=== PATIENT | male | born 1960 | race Caucasian/White ===

== ENCOUNTER 2020-05-11 15:11 | IRF | payer OTHER, SELFPAY ==
--- NOTE | 2020-05-11 14:37 | ADMGEN ---
This patient, Robert Huston, was admitted to PSYCHIATRIC Room 223-02. Patient/family oriented to hospital policies and general routines including ID bracelet, bed and alarms, visiting hours, pain management, procedures, bathroom and other care routines, personal items, smoking policy, room service/diet, and visiting hours. Information on how to activate the Rapid Response Team has been discussed. Patient/Family are encouraged to report perceived risks to care and to ask questions if they do not understand what they are told or what they should do.
[2020-05-11 14:45] VITALS: BP 110/63; PULSE 80; RESP 20; TEMP 36.7; O2SAT 96; BMI 25.4
[2020-05-11 14:47] VITALS: BP 110/63; PULSE 80; RESP 20; TEMP 36.7; O2SAT 96; BMI 25.4
[2020-05-11 15:37] VITALS: BMI 25.4
[2020-05-11] MEDS: APIXABAN 5 MG TABLET PO (18:08)
[2020-05-11] MEDS: ATORVASTATIN 40 MG TABLET PO (20:09)
[2020-05-11] MEDS: DIVALPROEX SODIUM ER 500 MG TAB 2000 MG PO (20:10)
[2020-05-11 22:00] VITALS: BP 115/70; PULSE 65; RESP 17; TEMP 36.1; O2SAT 96
[2020-05-12 05:15] LABS: Basophils Percent Auto 0.4 % (0.2-1.2); Eosinophils Absolute Auto 0.2 K/mm3 (0-0.3); Eosinophils Percent Auto 2.6 % (0-4.4); Hemoglobin 14.7 g/dL (14.0-18.0); Immature Granulocyte Absolute 0.03 K/mm3 (0.00-0.031); Immature Granulocyte Percent A 0.4 % (0-0.5); Lymphocytes Percent Auto 49.7 % (18.3-44.2); Mean Corpuscular HGB Conc 34.2 g/dl (32-36); Mean Corpuscular Volume 93.5 fl (80-100); Mean Platelet Volume 10.3 fl (7.4-10.4); Monocytes Absolute Auto 0.8 K/mm3 (0.1-0.6); Monocytes Percent Auto 10.1 % (2.6-8.5); Neutrophils Absolute Auto 2.7 K/mm3 (1.3-6.7); Neutrophils Percent Auto 36.8 % (45.5-73.1); Platelet Count Result 245 k/mm3 (150-375); White Blood Count 7.4 K/mm3 (4.5-10.0)
[2020-05-12 05:30] LABS: Anion Gap 7 mmol/L (8-16); Blood Urea Nitrogen 23 mg/dL (9-20); Calcium 9.3 mg/dL (8.4-10.2); Carbon Dioxide 32 mmol/L (22-30); Chloride 101 mmol/L (98-107); Cholesterol 118 mg/dL (0-200); Estimated CRCL calculation 97 ml/min; Estimated Glomerular Filt Rate > 60; Glucose 92 mg/dL (75-110); HDL Direct 22 mg/dL; Potassium 4.6 mmol/L (3.4-5.0); Sodium 140 mmol/L (137-145); Triglycerides 147 mg/dL (<150)
[2020-05-12 05:41] LABS: LDL Cholesterol Direct 72 mg/dL
[2020-05-12 06:00] VITALS: BP 150/95; PULSE 70; RESP 17; TEMP 36.1; O2SAT 97
[2020-05-12 08:42] VITALS: PULSE 70
[2020-05-12] MEDS: APIXABAN 5 MG TABLET PO ×2 (08:42→17:40)
[2020-05-12] MEDS: METOPROLOL SUCCINATE EXT REL 50 MG TABCR PO (08:42)
[2020-05-12] MEDS: lisinopriL 10 MG TABLET PO (08:42)
[2020-05-12] MEDS: SERTRALINE HCL 50 MG TABLET 150 MG PO (08:43)
[2020-05-12] MEDS: SPIRONOLACTONE 12.5 MG TABLET PO (08:43)
--- NOTE | 2020-05-12 11:25 | WPDREHABHP ---
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 history and present illness. 59 years old right-handed male presented to [facility] as a transfer from [facility] in [place] on May 04, 2020 the patient reported attempting to stand up walking up on 05/04 was unable to do so. Upon presentation to [facility] his NIH was 3 and the patient was given tPA and admitted to the neuro ICU. CT of the head was negative for any acute hemorrhage, but showed ventricular enlargement out of proportion to sulcal enlargement representing the possibility of hydrocephalus. 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 CT angiography showed a heterogeneous enlarged left thyroid lobe and no acute hemorrhage or large arterial occlusion, TTE showed an ejection fraction of 20% and apixaban was started in the setting of low ejection fraction. It was suspected the ischemic mechanism was cardioembolic. The patient underwent LHC on 05/07 for newly diagnosed NYHA class 3 systolic heart failure and started on goal-directed medical therapy. 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 Plan was to continue Eliquis 5 mg b.i.d. for anticoagulation until seen for follow-up with outpatient neurologist. 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 He was previously on praluent but stopped 4 months ago due to worsening confusion] the patient is awake alert oriented x4 and he has passed his swallowing evaluation and is also on regular diet. The patient has not traveled outside the [place] or had contact with someone who is ill that has travelled outside the [place] in the past 21 days. The patient has not traveled to an area of the [place] that is experiencing known transmission of the Coronavirus and has not had close personal contact with anyone that has. The patient does not have a fever. The patient is not experiencing lower respiratory illness symptoms. Therapy was initiated at the acute care facility and the patient was transferred to us from [facility] to [facility] on May 11, 2020ADMISSION FUNCTION: Eating supervision or touching physical laboratory assistant Oral Care partial and moderate assistance Toileting Hygiene substantial and maximal assistance Shower/Bathing substantial and maximal assistance Upper Body Dressing substantial and maximal assistance Lower Body Dressing substantial and maximal assistance Donning/Talent Footwear substantial and maximal assistance Rolling Left and Right partial and moderate assistance Sit to Lying partial and moderate assistance Lying to Sitting partial and moderate assistance Sit to Stand dependent Bed to Chair Transfers dependent Toilet Transfers dependent Car Transfers depending Walking the patient has walked 3ft with a hand-held assist and dependent with Min assist of 2 wheelchair mobility not tested his stairs not tested GOALS: Eating [INDEPENDENT] Oral Care [INDEPENDENT] Toileting Hygiene [INDEPENDENT] Shower/Bathing [INDEPENDENT] Upper Body Dressing [INDEPENDENT] Lower Body Dressing [INDEPENDENT] Donning/Talent Footwear [INDEPENDENT] Rolling Left and Right [INDEPENDENT] Sit to Lying [INDEPENDENT] Lying to Sitting [INDEPENDENT] Sit to Stand [INDEPENDENT] Bed to
[2020-05-12 12:51] VITALS: BMI 25.4
[2020-05-12 14:00] VITALS: BP 101/59; PULSE 76; RESP 18; TEMP 36.6; O2SAT 98
--- NOTE | 2020-05-12 16:48 | RPD ---
INDIVIDUALIZED PLAN OF CARE FOR Robert Huston Brief Synthesis of Pre-Admission Screen, Post-Admission Evaluation and Therapy Evaluations: The patient presents to rehab with an acute distal left MARIAN territory infarction. Comorbidities include ischemic cardiomyopathy, HLD, HTN, depression, bipolar, inferior wall AR, right-sided weakness, active smoker, CAD, and systolic heart failure with EF 20%. The complexity of the patient's medical management, nursing, and therapy needs require an inpatient rehab hospital stay with a physician-led interdisciplinary team approach. The patient?s needs will be best met in an intensive program vs. at a lower level of care. The patient requires physician services for neurology services, medical oversight, and coordination of care. The patient requires nursing services for frequent neuro checks, anticoagulation therapy, medication management and education, pressure relief and skin care management, monitoring of labs, bowel and bladder training, and fall/safety precautions. Deficits include:ADLs, Balance, Endurance, Family Training/Education, Mobility, Pain Management, ROM, Safety, Strength, and Transfers. Automatic Wheel Line Operator/Case Management for: Discharge Planning and Patient/Family Counseling Physical Therapy: 5 days per week for 90 minutes. Treatments may include: Therapeutic Exercise, Gait Training, Neuromuscular Re-education, Transfer Training, Community Reintegration, Bed Mobility, Patient/Family Education, Wheelchair Mobility Group Therapy/Concurrent Therapy Rationales: -Improve attention span during functional activities in a distracted environment. -Enhance problem solving and/or adequate judgment skills during functional activities in a distracted environment. -Promote increased safety awareness in a distracted environment to reduce fall risk with functional tasks, transfers, and ambulation to allow a more safe, self-sufficient return to the home environment. -Improve dynamic balance skills to promote safety and independence with functional activities in a distracted environment for maximum gain. Occupational Therapy: 5 days per week for 90 minutes. Treatments may include: Therapeutic Exercise, Therapeutic Activity, Cognitive Training, Self-Care Transfer Training, Community Reintegration, Home Management, Patient/Family Education, Wheelchair Mobility Training, Energy Conservation Training Group Therapy/Concurrent Therapy Rationales: -Allow therapist to observe and teach generalization and carry-over of skills learned in individual therapy. -Enhance problem solving and sequencing skills during therapeutic activities in a distracted environment. -Promote increased safety awareness in a realistic setting to reduce fall risk with functional tasks due to visual and verbal distractions. -Increase functional level with ADLs, ADL transfers and use of adaptive equipment through therapeutic activities with others while promoting safety to allow a more safe, self-sufficient return home. Medical Prognosis: Good Anticipated Length of Stay: 12 days Rehab Goals: Eating Goal: 06-Independent Oral Hygiene Goal: 06-Independent Toileting Hygiene Goal: 06-Independent Shower/Bathe Self Goal: 04-Supervision or Touching Assistance Upper Body Dressing Goal: 05-Setup or Clean Up Assistance Lower Body Dressing Goal: 05-Setup or Clean Up Assistance Putting On/Taking Off Footwear Goal: 05-Setup or Clean Up Assistance Rolling Left and Right Goal: 06-Independent Sit to Lying Goal: 06-Independent Lying to Sitting on Side of Bed Goal: 06-Independent Sit to Stand Goal: 06-Independent Chair/Tzb-ax-Ezcas Transfer Goal: 06-Independent Toilet Transfer Goal: 06-Independent Car Transfer Goal: 06-Independent Walk 10' Goal: 06-Independent Walk 50' with Two Turns Goal: 06-Independent Walk 150' Goal: 06-Independent Walk 10' on Uneven Surface Goal: 06-Independent 1 Step (Curb) Goal: 06-Independent 4 Steps Goal: 06-Independent 12 Steps Goal Score: 09-Not
--- NOTE | 2020-05-12 18:30 | PHAR ---
PT'S HOME MED PALIPERIDONE ER 6 MG TABS VERIFIED BY PHARMACY
[2020-05-12] MEDS: DIVALPROEX SODIUM ER 500 MG TAB 2000 MG PO (19:53)
[2020-05-12] MEDS: ATORVASTATIN 40 MG TABLET PO (19:53)
[2020-05-12 20:49] VITALS: BP 105/53; PULSE 57; RESP 18; TEMP 36.7; O2SAT 98
[2020-05-13 05:03] VITALS: BP 120/82; PULSE 57; RESP 18; TEMP 36.2; O2SAT 97
[2020-05-13 09:55] VITALS: PULSE 60
[2020-05-13] MEDS: SPIRONOLACTONE 12.5 MG TABLET PO (09:55)
[2020-05-13] MEDS: APIXABAN 5 MG TABLET PO ×2 (09:55→17:14)
[2020-05-13] MEDS: lisinopriL 10 MG TABLET PO (09:55)
[2020-05-13] MEDS: METOPROLOL SUCCINATE EXT REL 50 MG TABCR PO (09:55)
[2020-05-13] MEDS: SERTRALINE HCL 50 MG TABLET 150 MG PO (09:55)
[2020-05-13 14:00] VITALS: BP 118/64; PULSE 70; RESP 20; TEMP 36.2; O2SAT 97
--- NOTE | 2020-05-13 17:31 | WPDNEURORHBP ---
Subjective Date/time seen: 05/13/20 17:31 59 years old admitted to the rehab floor with diagnosis of stroke secondary to acute distal left anterior cerebral artery infarction and history of smoking 2 packs per day with 90 pack years Review of Systems Review of Systems: All systems reviewed & are unremarkable except as noted in HPI and below Functional Status Ambulation Ability Ambulation Assistive Devices: Parallel Bars Exam Narrative: Exam Narrative: examination revealed him to be awake alert cooperative in no obvious acute distress, head normocephalic,ears nose throat examination normal neck supple with no restriction of the range of motion no cervical bruits, heart regular with no murmur, lungs clear with no rhonchi or crepitation ,abdomen is soft with no organomegaly, normal bowel sounds and neurological examination revealed him to have somewhat slow speech , left-sided hemiparesis, hyperreflexia and upgoing plantar response Objective Data Vital Signs Vital Signs: Vital Signs - 24 hr 05/12/20 20:49 05/13/20 05:03 05/13/20 09:55 Temperature 36.7 C 36.2 C L Pulse Rate 57 L 57 L 60 Respiratory Rate 18 18 Blood Pressure 105/53 L 120/82 Pulse Oximetry 98 97 05/13/20 14:00 Temperature 36.2 C L Pulse Rate 70 Respiratory Rate 20 Blood Pressure 118/64 Pulse Oximetry 97 Intake/Output Intake/Output: Intake & Output 05/10/20 05/11/20 05/12/20 05/13/20 23:59 23:59 23:59 23:59 Intake Total 240 1200 480 Balance 240 1200 480 Meds/Results Medications: Active Medications Generic Name Dose Route Start Last Admin Trade Name Fuadq PRN Reason Stop Dose Admin Apixaban 5 mg 05/11/20 17:00 05/13/20 17:14 Apixaban 5 Mg Tablet PO 5 mg BID FELIZ Administration Atorvastatin Calcium 40 mg 05/11/20 21:00 05/12/20 19:53 Atorvastatin 40 Mg Tablet PO 40 mg HS FELIZ Administration Divalproex Sodium 2,000 mg 05/11/20 21:00 05/12/20 19:53 Divalproex Sodium Er 500 Mg Tab PO 2,000 mg HS FELIZ Administration Lisinopril 10 mg 05/12/20 09:00 05/13/20 09:55 Lisinopril 10 Mg Tablet PO 10 mg DAILY FELIZ Administration Metoprolol Succinate 50 mg 10/26/20 09:00 05/13/20 09:55 Metoprolol Succinate Ext Rel 50 Mg Tabcr PO 50 mg DAILY FELIZ Administration Sertraline HCl 150 mg 05/12/20 09:00 05/13/20 09:55 Sertraline Hcl 50 Mg Tablet PO 150 mg DAILY FELIZ Administration Spironolactone 12.5 mg 05/12/20 09:00 05/13/20 09:55 Spironolactone 12.5 Mg Tablet PO 12.5 mg QAM FELIZ Administration Progress Note: A&P Additional Plan continue with the physical therapy and occupational therapy in all the medication as such
[2020-05-13] MEDS: ATORVASTATIN 40 MG TABLET PO (20:06)
[2020-05-13] MEDS: DIVALPROEX SODIUM ER 500 MG TAB 2000 MG PO (20:06)
[2020-05-13 20:28] VITALS: BP 114/61; PULSE 71; RESP 18; TEMP 36.1; O2SAT 98
[2020-05-14 05:15] VITALS: BP 126/72; PULSE 67; RESP 18; TEMP 36.4; O2SAT 99
[2020-05-14 08:38] VITALS: PULSE 67
[2020-05-14] MEDS: lisinopriL 10 MG TABLET PO (08:38)
[2020-05-14] MEDS: APIXABAN 5 MG TABLET PO ×2 (08:38→17:44)
[2020-05-14] MEDS: METOPROLOL SUCCINATE EXT REL 50 MG TABCR PO (08:38)
[2020-05-14] MEDS: SPIRONOLACTONE 12.5 MG TABLET PO (08:39)
[2020-05-14] MEDS: SERTRALINE HCL 50 MG TABLET 150 MG PO (08:39)
[2020-05-14 14:00] VITALS: BP 111/61; PULSE 64; RESP 18; TEMP 36.6; O2SAT 97
--- NOTE | 2020-05-14 17:43 | WPDNEURORHBP ---
Subjective Date/time seen: 05/14/20 17:43 59 years old with diagnosis of stroke continues to be involved in physical therapy and occupational therapy has no specific problems Review of Systems Review of Systems: All systems reviewed & are unremarkable except as noted in HPI and below Functional Status Ambulation Ability Ability to Ambulate 10 Feet: Moderate Assistance X 1 Ambulation Assistive Devices: Parallel Bars Transfers Ability Ability to Transfer In/Out of Chair: Minimum Assistance X 1 Exam Narrative: Exam Narrative: on examination awake alert no distress,ear nose throat exam normal ,neck supple, heart regular, lungs clear, abdomen is soft nontender, normal bowel sounds, neuro unchanged Objective Data Vital Signs Vital Signs: Vital Signs - 24 hr 05/13/20 20:28 05/14/20 05:15 05/14/20 08:38 Temperature 36.1 C L 36.4 C Pulse Rate 71 67 67 Respiratory Rate 18 18 Blood Pressure 114/61 126/72 Pulse Oximetry 98 99 05/14/20 14:00 Temperature 36.6 C Pulse Rate 64 Respiratory Rate 18 Blood Pressure 111/61 Pulse Oximetry 97 Intake/Output Intake/Output: Intake & Output 05/11/20 05/12/20 05/13/20 05/14/20 23:59 23:59 23:59 23:59 Intake Total 240 1200 720 480 Balance 240 1200 720 480 Meds/Results Medications: Active Medications Generic Name Dose Route Start Last Admin Trade Name Freq PRN Reason Stop Dose Admin Apixaban 5 mg 05/11/20 17:00 05/14/20 08:38 Apixaban 5 Mg Tablet PO 5 mg BID FELIZ Administration Atorvastatin Calcium 40 mg 05/11/20 21:00 05/13/20 20:06 Atorvastatin 40 Mg Tablet PO 40 mg HS FELIZ Administration Divalproex Sodium 2,000 mg 05/11/20 21:00 05/13/20 20:06 Divalproex Sodium Er 500 Mg Tab PO 2,000 mg HS FELIZ Administration Lisinopril 10 mg 05/12/20 09:00 05/14/20 08:38 Lisinopril 10 Mg Tablet PO 10 mg DAILY FELIZ Administration Metoprolol Succinate 50 mg 05/12/20 09:00 05/14/20 08:38 Metoprolol Succinate Ext Rel 50 Mg Tabcr PO 50 mg DAILY FELIZ Administration Sertraline HCl 150 mg 05/12/20 09:00 05/14/20 08:39 Sertraline Hcl 50 Mg Tablet PO 150 mg DAILY FELIZ Administration Spironolactone 12.5 mg 05/12/20 09:00 05/14/20 08:39 Spironolactone 12.5 Mg Tablet PO 12.5 mg QAM FELIZ Administration Progress Note: A&P Additional Plan continue with therapy
--- NOTE | 2020-05-14 18:07 | PHAR ---
Home med paliperidone er 6mg tabalets seen in pharmacy and returned to [facility] unit
[2020-05-14] MEDS: ATORVASTATIN 40 MG TABLET PO (19:56)
[2020-05-14] MEDS: DIVALPROEX SODIUM ER 500 MG TAB 2000 MG PO (19:56)
[2020-05-14 22:00] VITALS: BP 116/57; PULSE 62; RESP 20; TEMP 36.8; O2SAT 98
[2020-05-15 06:00] VITALS: BP 142/60; PULSE 53; RESP 17; TEMP 36.4; O2SAT 98
[2020-05-15] MEDS: lisinopriL 10 MG TABLET PO (09:43)
[2020-05-15] MEDS: SERTRALINE HCL 50 MG TABLET 150 MG PO (09:43)
[2020-05-15 09:44] VITALS: PULSE 53
[2020-05-15] MEDS: APIXABAN 5 MG TABLET PO ×2 (09:44→17:49)
[2020-05-15] MEDS: SPIRONOLACTONE 12.5 MG TABLET PO (09:44)
[2020-05-15] MEDS: METOPROLOL SUCCINATE EXT REL 50 MG TABCR PO (09:44)
[2020-05-15 14:00] VITALS: BP 104/56; PULSE 64; RESP 16; TEMP 37.1; O2SAT 98
--- NOTE | 2020-05-15 16:17 | PCPTNOTE ---
Robert Huston was evaluated for a wheeled walker on 05/15/2020 by this physical therapist assistant child care teacher. The wheeled walker will resolve patient's mobility limitations and will be used for ADL's within the home. The patient can safely use the wheeled walker. ?The wheeled walker will resolve the patient?s mobility deficits, including decreased endurance, strength, balance, safety awareness. Eulalia Larkin, DANE 05/15/20 16:18
[2020-05-15] MEDS: ATORVASTATIN 40 MG TABLET PO (20:06)
[2020-05-15] MEDS: DIVALPROEX SODIUM ER 500 MG TAB 2000 MG PO (20:06)
[2020-05-15 21:02] VITALS: BP 98/55; PULSE 60; RESP 18; TEMP 36.6; O2SAT 97
[2020-05-16 05:12] VITALS: BP 126/65; PULSE 71; RESP 18; TEMP 36.5; O2SAT 97
[2020-05-16] MEDS: APIXABAN 5 MG TABLET PO ×2 (08:37→16:45)
[2020-05-16 08:38] VITALS: PULSE 71
[2020-05-16] MEDS: SPIRONOLACTONE 12.5 MG TABLET PO (08:38)
[2020-05-16] MEDS: SERTRALINE HCL 50 MG TABLET 150 MG PO (08:38)
[2020-05-16] MEDS: METOPROLOL SUCCINATE EXT REL 50 MG TABCR PO (08:38)
[2020-05-16] MEDS: lisinopriL 10 MG TABLET PO (08:38)
--- NOTE | 2020-05-16 12:31 | PCDIET ---
Nutrition Follow-Up Complete: Nutrition Diagnosis: Decreased fat/sodium needs related to cardiovascular disease as evidenced by history of CAD/CABG and CVA. Nutrition Goal: Patient will continue to consume 75% of meals or greater. Goal met. Patient consuming 100% of most meals on regular diet. Discussed recommendation for heart healthy diet with patient and provided information. See Teach: MNT Stroke Prevention for additional details. Last recorded weight is 78.1 kg. Recommend obtaining new weight. Bowel Motility: Last documented BM on 05/15/20. Labs Reviewed: No new labs available. Meds Noted: Lipitor, Lisinopril, Aldactone Additional Notes: No documented skin breakdown. Will continue to monitor with same goal. Nutrition Monitoring and Evaluation: Follow up every 7 days.
--- NOTE | 2020-05-16 13:14 | WPDNEURORHBP ---
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 has been placed on Eliquis 5 mg twice a day for anticoagulation along with aspirin and atorvastatin he does have a history of myopathy so his atorvastatin could not be increased to80mg daily his involving the physical therapy has been able to ambulate with moderate assistance of 1 using the palatal bars and also able to transfer in out of chair with minimum assistance of 1 Review of Systems Review of Systems: All systems reviewed & are unremarkable except as noted in HPI and below Functional Status Ambulation Ability Ability to Ambulate 10 Feet: Moderate Assistance X 1 Ambulation Assistive Devices: Walker, Wheeled Transfers Ability Ability to Transfer In/Out of Chair: Minimum Assistance X 1 Exam Narrative: Exam Narrative: on examination he is awake alert in no acute distress neck is supple ear nose throat examination normal mucous membranes are moist no rhinorrhea no discharge regular with no murmur lungs clear to auscultation abdomen is soft and neuro examination unchanged Objective Data Vital Signs Vital Signs: Vital Signs - 24 hr 05/15/20 14:00 05/15/20 21:02 05/16/20 05:12 Temperature 37.1 C 36.6 C 36.5 C Pulse Rate 64 60 71 Respiratory Rate 16 18 18 Blood Pressure 104/56 L 98/55 L 126/65 Pulse Oximetry 98 97 97 05/16/20 08:38 Temperature Pulse Rate 71 Respiratory Rate Blood Pressure Pulse Oximetry Intake/Output Intake/Output: Intake & Output 05/13/20 05/14/20 05/15/20 05/16/20 23:59 23:59 23:59 23:59 Intake Total 720 720 720 240 Balance 720 720 720 240 Meds/Results Medications: Active Medications Generic Name Dose Route Start Last Admin Trade Name Freq PRN Reason Stop Dose Admin Apixaban 5 mg 05/11/20 17:00 05/16/20 08:37 Apixaban 5 Mg Tablet PO 5 mg BID FELIZ Administration Atorvastatin Calcium 40 mg 05/11/20 21:00 05/15/20 20:06 Atorvastatin 40 Mg Tablet PO 40 mg HS FELIZ Administration Divalproex Sodium 2,000 mg 05/11/20 21:00 05/15/20 20:06 Divalproex Sodium Er 500 Mg Tab PO 2,000 mg HS FELIZ Administration Lisinopril 10 mg 05/12/20 09:00 05/16/20 08:38 Lisinopril 10 Mg Tablet PO 10 mg DAILY FELIZ Administration Metoprolol Succinate 50 mg 05/12/20 09:00 05/16/20 08:38 Metoprolol Succinate Ext Rel 50 Mg Tabcr PO 50 mg DAILY FELIZ Administration Sertraline HCl 150 mg 05/12/20 09:00 05/16/20 08:38 Sertraline Hcl 50 Mg Tablet PO 150 mg DAILY FELIZ Administration Spironolactone 12.5 mg 05/12/20 09:00 05/16/20 08:38 Spironolactone 12.5 Mg Tablet PO 12.5 mg QAM FELIZ Administration Progress Note: A&P Assessment and Plan (1) Stroke: Code(s): I63.9 - Cerebral infarction, unspecified Status: Acute (2) Cerebral ventriculomegaly: Code(s): G93.89 - Other specified disorders of brain Status: Acute Additional Plan continue with the therapy as such further adjustment accordingly
[2020-05-16 14:00] VITALS: BP 114/54; PULSE 68; RESP 20; TEMP 36.8; O2SAT 98
[2020-05-16] MEDS: ATORVASTATIN 40 MG TABLET PO (20:32)
[2020-05-16] MEDS: DIVALPROEX SODIUM ER 500 MG TAB 2000 MG PO (20:33)
[2020-05-16 22:00] VITALS: BP 96/48; PULSE 67; RESP 16; TEMP 36.6; O2SAT 97
[2020-05-17 06:00] VITALS: BP 135/85; PULSE 60; RESP 16; TEMP 36.3; O2SAT 96
[2020-05-17 07:50] VITALS: PULSE 60
[2020-05-17] MEDS: SERTRALINE HCL 50 MG TABLET 150 MG PO (07:50)
[2020-05-17] MEDS: APIXABAN 5 MG TABLET PO ×2 (07:50→17:02)
[2020-05-17] MEDS: lisinopriL 10 MG TABLET PO (07:50)
[2020-05-17] MEDS: METOPROLOL SUCCINATE EXT REL 50 MG TABCR PO (07:50)
[2020-05-17] MEDS: SPIRONOLACTONE 12.5 MG TABLET PO (07:51)
[2020-05-17 14:00] VITALS: BP 95/54; PULSE 54; RESP 16; TEMP 37; O2SAT 98
[2020-05-17] MEDS: ATORVASTATIN 40 MG TABLET PO (19:55)
[2020-05-17] MEDS: DIVALPROEX SODIUM ER 500 MG TAB 2000 MG PO (19:56)
[2020-05-17 22:00] VITALS: BP 108/69; PULSE 60; RESP 15; TEMP 36.5; O2SAT 98
--- NOTE | 2020-05-18 01:06 | PC.NURSE ---
Daylight Savings Time For Daylight Savings Time Ending in the Fall - Clocks are moved back. For Daylight Savings Time Beginning in the Spring - Clocks are moved ahead. For [facility], the time of change occurs at 0200 hrs. Time is taken from the senior sql server database developer. This entry on the patient's chart recognizes the change in time reflected during documentation. Example: 2 entries for vital signs may be charted for 0200 hrs.
[2020-05-18 06:00] VITALS: BP 130/76; PULSE 59; RESP 16; TEMP 36.2; O2SAT 100
[2020-05-18] MEDS: APIXABAN 5 MG TABLET PO ×2 (07:53→16:31)
[2020-05-18] MEDS: lisinopriL 10 MG TABLET PO (07:53)
[2020-05-18 07:54] VITALS: PULSE 59
[2020-05-18] MEDS: SPIRONOLACTONE 12.5 MG TABLET PO (07:54)
[2020-05-18] MEDS: SERTRALINE HCL 50 MG TABLET 150 MG PO (07:54)
[2020-05-18] MEDS: METOPROLOL SUCCINATE EXT REL 50 MG TABCR PO (07:54)
--- NOTE | 2020-05-18 11:36 | WPDNEURORHBP ---
Subjective Date/time seen: 05/18/20 11:36 59 years old with diagnosis of his stroke secondary to involvement of distal left anterior cerebral artery and chronic total occlusion of the mid right cerebral artery has been receiving Eliquis 5 mg twice a day along with aspirin and atorvastatin, has been involved in the physical therapy and walking up to 10ft with moderate assistance of 1 using the wheeled walker Review of Systems Review of Systems: All systems reviewed & are unremarkable except as noted in HPI and below Functional Status Ambulation Ability Ability to Ambulate 10 Feet: Moderate Assistance X 1 Ambulation Assistive Devices: Walker, Wheeled Transfers Ability Ability to Transfer In/Out of Chair: Minimum Assistance X 1 Exam Narrative: Exam Narrative: on examination today he is awake alert, no acute distress, neck is supple, ear nose throat examination normal, heart regular with no murmur, lungs clear with no rhonchi or crepitation, abdomen is soft with no organomegaly normal bowel sounds, neurological examination unchanged, skin normal. Objective Data Vital Signs Vital Signs: Vital Signs - 24 hr 05/17/20 14:00 05/17/20 22:00 05/18/20 06:00 Temperature 37.0 C 36.5 C 36.2 C L Pulse Rate 54 L 60 59 L Respiratory Rate 16 15 16 Blood Pressure 95/54 L 108/69 130/76 Pulse Oximetry 98 98 100 05/18/20 07:54 Temperature Pulse Rate 59 L Respiratory Rate Blood Pressure Pulse Oximetry Intake/Output Intake/Output: Intake & Output 05/15/20 05/16/20 05/17/20 05/18/20 23:59 23:59 23:59 22:59 Intake Total 720 720 840 240 Balance 720 720 840 240 Meds/Results Medications: Active Medications Generic Name Dose Route Start Last Admin Trade Name Freq PRN Reason Stop Dose Admin Apixaban 5 mg 05/11/20 17:00 05/18/20 07:53 Apixaban 5 Mg Tablet PO 5 mg BID FELIZ Administration Atorvastatin Calcium 40 mg 05/11/20 21:00 05/17/20 19:55 Atorvastatin 40 Mg Tablet PO 40 mg HS FELIZ Administration Divalproex Sodium 2,000 mg 05/11/20 21:00 05/17/20 19:56 Divalproex Sodium Er 500 Mg Tab PO 2,000 mg HS FELIZ Administration Lisinopril 10 mg 05/12/20 09:00 05/18/20 07:53 Lisinopril 10 Mg Tablet PO 10 mg DAILY FELIZ Administration Metoprolol Succinate 50 mg 05/12/20 09:00 05/18/20 07:54 Metoprolol Succinate Ext Rel 50 Mg Tabcr PO 50 mg DAILY FELIZ Administration Sertraline HCl 150 mg 05/12/20 09:00 05/18/20 07:54 Sertraline Hcl 50 Mg Tablet PO 150 mg DAILY FELIZ Administration Spironolactone 12.5 mg 05/12/20 09:00 05/18/20 07:54 Spironolactone 12.5 Mg Tablet PO 12.5 mg QAM FELIZ Administration Progress Note: A&P Assessment and Plan (1) Cerebral ventriculomegaly: Code(s): G93.89 - Other specified disorders of brain Status: Acute (2) Stroke: Code(s): I63.9 - Cerebral infarction, unspecified Status: Acute Additional Plan Stable continue the treatment as such
[2020-05-18 14:00] VITALS: BP 105/48; PULSE 69; RESP 18; TEMP 37; O2SAT 97
[2020-05-18] MEDS: ATORVASTATIN 40 MG TABLET PO (19:55)
[2020-05-18] MEDS: DIVALPROEX SODIUM ER 500 MG TAB 2000 MG PO (19:56)
[2020-05-18 22:00] VITALS: BP 110/69; PULSE 60; RESP 15; TEMP 36.4; O2SAT 99
[2020-05-19 05:33] LABS: Basophils Percent Auto 0.3 % (0.2-1.2); Eosinophils Absolute Auto 0.1 K/mm3 (0-0.3); Eosinophils Percent Auto 1.9 % (0-4.4); Hematocrit 39.1 % (42.0-52.0); Hemoglobin 13.5 g/dL (14.0-18.0); Immature Granulocyte Absolute 0.01 K/mm3 (0.00-0.031); Immature Granulocyte Percent A 0.1 % (0-0.5); Lymphocytes Absolute Auto 3.43 K/mm3 (0.9-3.2); Lymphocytes Percent Auto 47.7 % (18.3-44.2); Mean Corpuscular HGB Conc 34.5 g/dl (32-36); Mean Corpuscular Hemoglobin 31.3 pg (26-34); Mean Corpuscular Volume 90.7 fl (80-100); Mean Platelet Volume 11.7 fl (7.4-10.4); Monocytes Absolute Auto 0.7 K/mm3 (0.1-0.6); Monocytes Percent Auto 9.6 % (2.6-8.5); Neutrophils Absolute Auto 2.9 K/mm3 (1.3-6.7); Neutrophils Percent Auto 40.4 % (45.5-73.1); Platelet Count Result 168 k/mm3 (150-375); Red Blood Count 4.31 M/mm3 (4.6-6.20); Red Cell Distribution Width 11.3 % (11.5-14.5); White Blood Count 7.2 K/mm3 (4.5-10.0)
[2020-05-19 05:45] LABS: Anion Gap 6 mmol/L (8-16); Blood Urea Nitrogen 25 mg/dL (9-20); Calcium 9.2 mg/dL (8.4-10.2); Carbon Dioxide 30 mmol/L (22-30); Chloride 103 mmol/L (98-107); Estimated CRCL calculation 111 ml/min; Estimated Glomerular Filt Rate > 60; Glucose 95 mg/dL (75-110); Potassium 4.5 mmol/L (3.4-5.0); Sodium 139 mmol/L (137-145)
[2020-05-19 06:00] VITALS: BP 110/64; PULSE 54; RESP 15; TEMP 36.4; O2SAT 98
[2020-05-19 08:30] VITALS: PULSE 66
[2020-05-19] MEDS: APIXABAN 5 MG TABLET PO ×2 (08:46→17:13)
[2020-05-19] MEDS: SERTRALINE HCL 50 MG TABLET 150 MG PO (08:46)
[2020-05-19 08:47] VITALS: PULSE 54
[2020-05-19] MEDS: SPIRONOLACTONE 12.5 MG TABLET PO (08:47)
[2020-05-19] MEDS: METOPROLOL SUCCINATE EXT REL 50 MG TABCR PO (08:47)
[2020-05-19] MEDS: lisinopriL 10 MG TABLET PO (08:47)
[2020-05-19 14:00] VITALS: BP 94/56; PULSE 62; RESP 18; TEMP 36.4; O2SAT 98
--- NOTE | 2020-05-19 15:14 | PCPTNOTE ---
Eulalia Larkin PTA completed an inpatient rehab wheelchair evaluation on Robert Huston on 05/19/2020. The patient is unable to safely and independently ambulate household distances due to their current impairments. Their diagnosis is CVA and their impairments include decreased strength, decreased endurance, decreased range of motion, decreased balance, lower extremity weakness, and ataxia. Robert's weight bearing status is weight-bearing as tolerated on the bilateral lower legs. The patient demonstrates significant functional mobility limitations that impair their ability to participate in mobility-related activities of daily living (MRADLs), including toileting, feeding, dressing, grooming, and bathing in the customary locations in the home. These limitations cannot be sufficiently resolved by the use of an appropriately fitted cane or walker. It is recommended that the patient utilize a wheelchair for functional mobility within the home in order to facilitate optimal safety, independence and participation in all MRADL's and adequately access their home environment on a regular basis. The patient's home provides adequate access between rooms, maneuvering space, and surfaces to accommodate the recommended wheelchair. The use of a wheelchair for functional mobility is strongly recommended and the patient is receptive to using the wheelchair. The use of this wheelchair will significantly improve the patient's ability to participate in MRADLS and the patient will use it on a regular basis in the home. This will facilitate optimal safety, independence, and participation. The patient has demonstrated sufficient physical and mental capabilities needed to safely propel a manual wheelchair that is provided in the home during a typical day. Recommended Wheelchair Frame: STANDARD Recommended Wheelchair Size: 18 X 18 Recommended Wheelchair Cushion:STANDARD Wheelchair Leg Recommendations: BILATERAL SWING AWAY LEG RESTS -Anti-tippers are recommended due to patient demonstrating increased risk for falls. They would benefit from anti-tippers with added safety and stabilization. Eulalia Larkin PTA 05/19/20 Evaluating Therapist Date I agree with and certify that the above recommendation is medically necessary. Referring Physician Date I agree with and certify that the above recommendation is medically necessary. Referring Physician Date
[2020-05-19 20:00] VITALS: PULSE 61; RESP 18; O2SAT 98
[2020-05-19 21:03] VITALS: BP 94/52; PULSE 61; RESP 18; TEMP 36.1; O2SAT 98
[2020-05-19] MEDS: ATORVASTATIN 40 MG TABLET PO (21:04)
[2020-05-19] MEDS: DIVALPROEX SODIUM ER 500 MG TAB 2000 MG PO (21:04)
[2020-05-20 05:42] VITALS: BP 99/51; PULSE 72; RESP 18; TEMP 36.1; O2SAT 99
[2020-05-20] MEDS: SERTRALINE HCL 50 MG TABLET 150 MG PO (10:04)
[2020-05-20 10:05] VITALS: PULSE 72
[2020-05-20] MEDS: APIXABAN 5 MG TABLET PO ×2 (10:05→17:18)
[2020-05-20] MEDS: METOPROLOL SUCCINATE EXT REL 50 MG TABCR PO (10:05)
[2020-05-20] MEDS: lisinopriL 10 MG TABLET PO (10:05)
[2020-05-20] MEDS: SPIRONOLACTONE 12.5 MG TABLET PO (10:06)
[2020-05-20 14:00] VITALS: BP 120/70; PULSE 67; RESP 20; TEMP 36.7; O2SAT 94
[2020-05-20 20:00] VITALS: PULSE 63; RESP 18; O2SAT 99
[2020-05-20] MEDS: DIVALPROEX SODIUM ER 500 MG TAB 2000 MG PO (21:46)
[2020-05-20] MEDS: ATORVASTATIN 40 MG TABLET PO (21:46)
[2020-05-20 22:00] VITALS: BP 108/56; PULSE 63; RESP 18; TEMP 37.2; O2SAT 99
[2020-05-21 06:00] VITALS: BP 116/56; PULSE 60; RESP 18; TEMP 37.2; O2SAT 100
[2020-05-21 08:51] VITALS: PULSE 66
[2020-05-21] MEDS: SERTRALINE HCL 50 MG TABLET 150 MG PO (08:51)
[2020-05-21] MEDS: SPIRONOLACTONE 12.5 MG TABLET PO (08:51)
[2020-05-21] MEDS: APIXABAN 5 MG TABLET PO ×2 (08:51→17:13)
[2020-05-21] MEDS: lisinopriL 10 MG TABLET PO (08:51)
[2020-05-21] MEDS: METOPROLOL SUCCINATE EXT REL 50 MG TABCR PO (08:51)
--- NOTE | 2020-05-21 11:59 | WPDNEURORHBP ---
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 has been receiving Eliquis 5 mg twice a day along with aspirin and atorvastatin he has been involved in the physical therapy and occupational therapy on a regular basis he is able to ambulate up to 10ft with moderate assistance of 2 and able to transfer in and out of chair with minimum assistance of 1 Functional Status Ambulation Ability Ability to Ambulate 10 Feet: Minimum Assistance X 1 Ambulation Assistive Devices: Walker, Wheeled Transfers Ability Ability to Transfer In/Out of Chair: Minimum Assistance X 1 Exam Narrative: Exam Narrative: his examination revealed him to be awake alert in no obvious acute distress ear nose throat examination normal no rhinorrhea mucous membranes are moist heart regular with no murmur lungs clear with no crepitation no rhonchi abdomen is soft with normal bowel sounds and nontender neuro examination is unchanged Objective Data Vital Signs Vital Signs: Vital Signs - 24 hr 05/20/20 14:00 05/20/20 20:00 05/20/20 22:00 Temperature 36.7 C 37.2 C Pulse Rate 67 63 63 Respiratory Rate 20 18 18 Blood Pressure 120/70 108/56 L Pulse Oximetry 94 99 99 05/21/20 06:00 05/21/20 08:51 Temperature 37.2 C Pulse Rate 60 66 Respiratory Rate 18 Blood Pressure 116/56 L Pulse Oximetry 100 Intake/Output Intake/Output: Intake & Output 05/18/20 05/19/20 05/20/20 05/21/20 23:59 23:59 23:59 23:59 Intake Total 1080 1200 240 Balance 1080 1200 240 Meds/Results Medications: Active Medications Generic Name Dose Route Start Last Admin Trade Name Freq PRN Reason Stop Dose Admin Apixaban 5 mg 05/11/20 17:00 05/21/20 08:51 Apixaban 5 Mg Tablet PO 5 mg BID FELIZ Administration Atorvastatin Calcium 40 mg 05/11/20 21:00 05/20/20 21:46 Atorvastatin 40 Mg Tablet PO 40 mg HS FELIZ Administration Divalproex Sodium 2,000 mg 05/11/20 21:00 05/20/20 21:46 Divalproex Sodium Er 500 Mg Tab PO 2,000 mg HS FELIZ Administration Lisinopril 10 mg 05/12/20 09:00 05/21/20 08:51 Lisinopril 10 Mg Tablet PO 10 mg DAILY FELIZ Administration Metoprolol Succinate 50 mg 05/12/20 09:00 05/21/20 08:51 Metoprolol Succinate Ext Rel 50 Mg Tabcr PO 50 mg DAILY FELIZ Administration Sertraline HCl 150 mg 05/12/20 09:00 05/21/20 08:51 Sertraline Hcl 50 Mg Tablet PO 150 mg DAILY FELIZ Administration Spironolactone 12.5 mg 05/12/20 09:00 05/21/20 08:51 Spironolactone 12.5 Mg Tablet PO 12.5 mg QAM FELIZ Administration Progress Note: A&P Assessment and Plan (1) Cerebral ventriculomegaly: Code(s): G93.89 - Other specified disorders of brain Status: Acute (2) Stroke: Code(s): I63.9 - Cerebral infarction, unspecified Status: Acute Additional Plan stable will continue the treatment as such
[2020-05-21 14:00] VITALS: BP 112/58; PULSE 58; RESP 20; TEMP 36.8; O2SAT 97
[2020-05-21] MEDS: ATORVASTATIN 40 MG TABLET PO (20:34)
[2020-05-21] MEDS: DIVALPROEX SODIUM ER 500 MG TAB 2000 MG PO (20:34)
[2020-05-21 22:00] VITALS: BP 116/67; PULSE 67; RESP 16; TEMP 36.8; O2SAT 97
[2020-05-22 05:53] VITALS: BP 131/83; PULSE 52; RESP 17; TEMP 36.5; O2SAT 97
[2020-05-22 08:31] VITALS: PULSE 60
[2020-05-22] MEDS: SERTRALINE HCL 50 MG TABLET 150 MG PO (08:31)
[2020-05-22] MEDS: APIXABAN 5 MG TABLET PO ×2 (08:31→17:25)
[2020-05-22] MEDS: lisinopriL 10 MG TABLET PO (08:31)
[2020-05-22] MEDS: METOPROLOL SUCCINATE EXT REL 50 MG TABCR PO (08:31)
[2020-05-22] MEDS: LOPERAMIDE HCL 2 MG CAPSULE PO (08:31)
[2020-05-22] MEDS: SPIRONOLACTONE 12.5 MG TABLET PO (08:31)
--- NOTE | 2020-05-22 11:21 | WPDNEURORHBP ---
Subjective Date/time seen: 05/22/20 11:21 59 years old admitted to the rehab with the diagnosis of his stroke has been receiving Eliquis 5 mg twice a day along with aspirin and atorvastatin has been actively involved in physical therapy and occupational therapy and is definitely showing signs of improvement he is at present walking with a wheeled walker with minimum assistance of 1 up to 10ft routine lab on 05/19 was not significant Functional Status Ambulation Ability Ability to Ambulate 10 Feet: Moderate Assistance X 1 Ambulation Assistive Devices: Walker, Wheeled Transfers Ability Ability to Transfer In/Out of Chair: Minimum Assistance X 1 Exam Narrative: Exam Narrative: on examination he is awake alert his speech nor dysphasic no dysarthric neck is supple nose throat examination normal with no rhinorrhea neck is supple heart regular lungs clear abdomen is soft nontender normal bowel sounds skin clear and neuro examination unchanged Objective Data Vital Signs Vital Signs: Vital Signs - 24 hr 05/21/20 14:00 05/21/20 22:00 05/22/20 05:53 Temperature 36.8 C 36.8 C 36.5 C Pulse Rate 58 L 67 52 L Respiratory Rate 20 16 17 Blood Pressure 112/58 L 116/67 131/83 Pulse Oximetry 97 97 97 05/22/20 08:31 Temperature Pulse Rate 60 Respiratory Rate Blood Pressure Pulse Oximetry Intake/Output Intake/Output: Intake & Output 05/19/20 05/20/20 05/21/20 05/22/20 23:59 23:59 23:59 23:59 Intake Total 1080 1200 720 240 Balance 1080 1200 720 240 Meds/Results Medications: Active Medications Generic Name Dose Route Start Last Admin Trade Name Ayde PRN Reason Stop Dose Admin Apixaban 5 mg 05/11/20 17:00 05/22/20 08:31 Apixaban 5 Mg Tablet PO 5 mg BID FELIZ Administration Atorvastatin Calcium 40 mg 05/11/20 21:00 05/21/20 20:34 Atorvastatin 40 Mg Tablet PO 40 mg HS FELIZ Administration Divalproex Sodium 2,000 mg 05/11/20 21:00 05/21/20 20:34 Divalproex Sodium Er 500 Mg Tab PO 2,000 mg HS FELIZ Administration Lisinopril 10 mg 05/12/20 09:00 05/22/20 08:31 Lisinopril 10 Mg Tablet PO 10 mg DAILY FELIZ Administration Loperamide HCl 2 mg 05/22/20 07:58 05/22/20 08:31 Loperamide Hcl 2 Mg Capsule PO 2 mg PRN PRN Administration Diarrhea Metoprolol Succinate 50 mg 05/12/20 09:00 05/22/20 08:31 Metoprolol Succinate Ext Rel 50 Mg Tabcr PO 50 mg DAILY FELIZ Administration Sertraline HCl 150 mg 05/12/20 09:00 05/22/20 08:31 Sertraline Hcl 50 Mg Tablet PO 150 mg DAILY FELIZ Administration Spironolactone 12.5 mg 05/12/20 09:00 05/22/20 08:31 Spironolactone 12.5 Mg Tablet PO 12.5 mg QAM FELIZ Administration Progress Note: A&P Assessment and Plan (1) Cerebral ventriculomegaly: Code(s): G93.89 - Other specified disorders of brain Status: Acute (2) Stroke: Code(s): I63.9 - Cerebral infarction, unspecified Status: Acute Additional Plan stable involving the physical therapy treatment will be continued as such
[2020-05-22 14:00] VITALS: BP 101/53; PULSE 60; RESP 16; TEMP 36.6; O2SAT 98
[2020-05-22] MEDS: ATORVASTATIN 40 MG TABLET PO (20:14)
[2020-05-22] MEDS: DIVALPROEX SODIUM ER 500 MG TAB 2000 MG PO (20:14)
[2020-05-22 22:00] VITALS: BP 116/69; PULSE 63; RESP 17; TEMP 36.8; O2SAT 98
[2020-05-23 06:00] VITALS: BP 111/48; PULSE 59; RESP 15; TEMP 36.9; O2SAT 99
[2020-05-23 08:20] VITALS: PULSE 60
[2020-05-23] MEDS: lisinopriL 10 MG TABLET PO (08:20)
[2020-05-23] MEDS: APIXABAN 5 MG TABLET PO ×2 (08:20→16:21)
[2020-05-23] MEDS: METOPROLOL SUCCINATE EXT REL 50 MG TABCR PO (08:20)
[2020-05-23] MEDS: SPIRONOLACTONE 12.5 MG TABLET PO (08:21)
[2020-05-23] MEDS: SERTRALINE HCL 50 MG TABLET 150 MG PO (08:21)
--- NOTE | 2020-05-23 12:11 | PCDIET ---
Nutrition Follow-Up Complete: Nutrition Diagnosis: Decreased fat/sodium needs related to cardiovascular disease as evidenced by history of CAD/CABG and CVA. Nutrition Goal: Patient will continue to consume 75% of meals or greater. Goal met. Patient consuming 100% of most meals on regular diet. Recommend adding heart healthy diet for optimal health. Last recorded weight is 78.1 kg. Recommend obtaining new weight. Bowel Motility: Last documented BM on 05/22/20. Labs Reviewed: Hgb (13.5), Hgb (39.1), BUN (25), Cr (0.6) Meds Noted: Lipitor, Lisinopril, Spironolactone Additional Notes: No documented skin breakdown. Will continue to monitor with same goal. Nutrition Monitoring and Evaluation: Follow up every 7 days.
[2020-05-23 14:00] VITALS: BP 92/61; PULSE 66; RESP 18; TEMP 36.8; O2SAT 96
[2020-05-23] MEDS: ATORVASTATIN 40 MG TABLET PO (19:59)
[2020-05-23] MEDS: DIVALPROEX SODIUM ER 500 MG TAB 2000 MG PO (19:59)
[2020-05-23 21:04] VITALS: BP 108/65; PULSE 64; RESP 18; TEMP 36.6; O2SAT 98
[2020-05-24 05:08] VITALS: BP 117/82; PULSE 50; RESP 20; TEMP 36.2; O2SAT 97
[2020-05-24 08:14] VITALS: PULSE 60
[2020-05-24] MEDS: SERTRALINE HCL 50 MG TABLET 150 MG PO (08:14)
[2020-05-24] MEDS: lisinopriL 10 MG TABLET PO (08:14)
[2020-05-24] MEDS: METOPROLOL SUCCINATE EXT REL 50 MG TABCR PO (08:14)
[2020-05-24] MEDS: APIXABAN 5 MG TABLET PO ×2 (08:14→17:10)
[2020-05-24] MEDS: SPIRONOLACTONE 12.5 MG TABLET PO (08:14)
--- NOTE | 2020-05-24 12:49 | WPDNEURORHBP ---
Subjective Date/time seen: 05/24/20 12:49 59 years old with diagnosis of his stroke along with the aspirin and atorvastatin actively involved in physical and occupational therapy able to ambulate with a wheeled walker and transfer with minimum assistance of 1 has no temperature elevation Review of Systems Review of Systems: All systems reviewed & are unremarkable except as noted in HPI and below Functional Status Ambulation Ability Ability to Ambulate 10 Feet: Minimum Assistance X 1 Ambulation Assistive Devices: Walker, Wheeled Transfers Ability Ability to Transfer In/Out of Chair: Minimum Assistance X 1 Exam Narrative: Exam Narrative: on examination awake alert speech normal neck is supple heart regular lungs clear abdomen is soft neuro unchanged Objective Data Vital Signs Vital Signs: Vital Signs - 24 hr 05/23/20 14:00 05/23/20 21:04 05/24/20 05:08 Temperature 36.8 C 36.6 C 36.2 C L Pulse Rate 66 64 50 L Respiratory Rate 18 18 20 Blood Pressure 92/61 L 108/65 117/82 Pulse Oximetry 96 98 97 05/24/20 08:14 Temperature Pulse Rate 60 Respiratory Rate Blood Pressure Pulse Oximetry Intake/Output Intake/Output: Intake & Output 05/21/20 05/22/20 05/23/20 05/24/20 23:59 23:59 23:59 23:59 Intake Total 452 693 3808 240 Balance 250 387 0603 240 Meds/Results Medications: Active Medications Generic Name Dose Route Start Last Admin Trade Name Freq PRN Reason Stop Dose Admin Apixaban 5 mg 05/11/20 17:00 05/24/20 08:14 Apixaban 5 Mg Tablet PO 5 mg BID FELIZ Administration Atorvastatin Calcium 40 mg 05/11/20 21:00 05/23/20 19:59 Atorvastatin 40 Mg Tablet PO 40 mg HS FELIZ Administration Divalproex Sodium 2,000 mg 05/11/20 21:00 05/23/20 19:59 Divalproex Sodium Er 500 Mg Tab PO 2,000 mg HS FELIZ Administration Lisinopril 10 mg 05/12/20 09:00 05/24/20 08:14 Lisinopril 10 Mg Tablet PO 10 mg DAILY FELIZ Administration Loperamide HCl 2 mg 05/22/20 07:58 05/22/20 08:31 Loperamide Hcl 2 Mg Capsule PO 2 mg PRN PRN Administration Diarrhea Metoprolol Succinate 50 mg 05/12/20 09:00 05/24/20 08:14 Metoprolol Succinate Ext Rel 50 Mg Tabcr PO 50 mg DAILY FELIZ Administration Sertraline HCl 150 mg 05/12/20 09:00 05/24/20 08:14 Sertraline Hcl 50 Mg Tablet PO 150 mg DAILY FELIZ Administration Spironolactone 12.5 mg 05/12/20 09:00 05/24/20 08:14 Spironolactone 12.5 Mg Tablet PO 12.5 mg QAM FELIZ Administration Progress Note: A&P Assessment and Plan (1) Cerebral ventriculomegaly: Code(s): G93.89 - Other specified disorders of brain Status: Acute (2) Stroke: Code(s): I63.9 - Cerebral infarction, unspecified Status: Acute Additional Plan will continue the management as such
[2020-05-24 14:00] VITALS: BP 109/57; PULSE 66; RESP 20; TEMP 36.6; O2SAT 97
[2020-05-24] MEDS: DIVALPROEX SODIUM ER 500 MG TAB 2000 MG PO (20:47)
[2020-05-24] MEDS: ATORVASTATIN 40 MG TABLET PO (20:47)
[2020-05-24 22:00] VITALS: BP 124/63; PULSE 54; RESP 20; TEMP 36.8; O2SAT 98
[2020-05-25 06:00] VITALS: BP 108/62; PULSE 52; RESP 20; TEMP 36.8; O2SAT 98
[2020-05-25 08:00] VITALS: PULSE 52; RESP 20; O2SAT 98
[2020-05-25] MEDS: APIXABAN 5 MG TABLET PO ×2 (09:11→17:07)
[2020-05-25] MEDS: SPIRONOLACTONE 12.5 MG TABLET PO (09:11)
[2020-05-25] MEDS: SERTRALINE HCL 50 MG TABLET 150 MG PO (09:11)
[2020-05-25 14:00] VITALS: BP 97/54; PULSE 65; RESP 18; TEMP 36.7; O2SAT 97
[2020-05-25] MEDS: DIVALPROEX SODIUM ER 500 MG TAB 2000 MG PO (20:02)
[2020-05-25] MEDS: ATORVASTATIN 40 MG TABLET PO (20:02)
[2020-05-25 22:00] VITALS: BP 100/60; PULSE 66; RESP 18; TEMP 36.6; O2SAT 98
[2020-05-26 04:59] LABS: Basophils Percent Auto 0.4 % (0.2-1.2); Eosinophils Absolute Auto 0.2 K/mm3 (0-0.3); Eosinophils Percent Auto 2.5 % (0-4.4); Hematocrit 37.7 % (42.0-52.0); Hemoglobin 13.1 g/dL (14.0-18.0); Immature Granulocyte Absolute 0.01 K/mm3 (0.00-0.031); Immature Granulocyte Percent A 0.1 % (0-0.5); Immature Platelet Fraction Pct 7.9 % (0.9-11.2); Lymphocytes Absolute Auto 3.65 K/mm3 (0.9-3.2); Mean Corpuscular HGB Conc 34.7 g/dl (32-36); Mean Corpuscular Hemoglobin 31.6 pg (26-34); Mean Corpuscular Volume 90.8 fl (80-100); Mean Platelet Volume 11.5 fl (7.4-10.4); Monocytes Absolute Auto 0.8 K/mm3 (0.1-0.6); Monocytes Percent Auto 11.6 % (2.6-8.5); Neutrophils Absolute Auto 2.5 K/mm3 (1.3-6.7); Neutrophils Percent Auto 34.4 % (45.5-73.1); Platelet Count Result 143 k/mm3 (150-375); Red Blood Count 4.15 M/mm3 (4.6-6.20); Red Cell Distribution Width 11.4 % (11.5-14.5); White Blood Count 7.2 K/mm3 (4.5-10.0)
[2020-05-26 05:20] LABS: Anion Gap 3 mmol/L (8-16); Blood Urea Nitrogen 16 mg/dL (9-20); Calcium 9.3 mg/dL (8.4-10.2); Carbon Dioxide 34 mmol/L (22-30); Chloride 103 mmol/L (98-107); Estimated CRCL calculation 111 ml/min; Estimated Glomerular Filt Rate > 60; Glucose 101 mg/dL (75-110); Potassium 4.4 mmol/L (3.4-5.0); Sodium 140 mmol/L (137-145)
[2020-05-26 06:00] VITALS: BP 120/66; PULSE 60; RESP 18; TEMP 36.1; O2SAT 97
[2020-05-26] MEDS: SPIRONOLACTONE 12.5 MG TABLET PO (09:35)
[2020-05-26] MEDS: APIXABAN 5 MG TABLET PO ×2 (09:35→17:47)
[2020-05-26] MEDS: SERTRALINE HCL 50 MG TABLET 150 MG PO (09:35)
--- NOTE | 2020-05-26 11:04 | WPDNEURORHBP ---
Subjective Date/time seen: 05/26/20 11:04 59 years old involving the physical therapy and occupational therapy with the diagnosis of a stroke able to walk with a wheeled walker with moderate assistance of 1 transfer in and out of chair with Min assist of 1 making significant improvement Functional Status Ambulation Ability Ability to Ambulate 10 Feet: Moderate Assistance X 1 Ambulation Assistive Devices: Walker, Wheeled Transfers Ability Ability to Transfer In/Out of Chair: Minimum Assistance X 1 Exam Narrative: Exam Narrative: on examination is awake alert cooperative with speech nor dysphasic no dysarthric not dysphonic neck is supple with no restriction in the range of motion heart regular lungs clear with no crepitation abdomen soft nontender normal bowel sounds neuro examination unchanged Objective Data Vital Signs Vital Signs: Vital Signs - 24 hr 05/25/20 14:00 05/25/20 22:00 05/26/20 06:00 Temperature 36.7 C 36.6 C 36.1 C L Pulse Rate 65 66 60 Respiratory Rate 18 18 18 Blood Pressure 97/54 L 100/60 120/66 Pulse Oximetry 97 98 97 Intake/Output Intake/Output: Intake & Output 05/23/20 05/24/20 05/25/20 05/26/20 23:59 23:59 23:59 23:59 Intake Total 1200 720 960 480 Balance 1200 720 960 480 Meds/Results Medications: Active Medications Generic Name Dose Route Start Last Admin Trade Name Freq PRN Reason Stop Dose Admin Apixaban 5 mg 05/11/20 17:00 05/26/20 09:35 Apixaban 5 Mg Tablet PO 5 mg BID FELIZ Administration Atorvastatin Calcium 40 mg 05/11/20 21:00 05/25/20 20:02 Atorvastatin 40 Mg Tablet PO 40 mg HS FELIZ Administration Divalproex Sodium 2,000 mg 05/11/20 21:00 05/25/20 20:02 Divalproex Sodium Er 500 Mg Tab PO 2,000 mg HS FELIZ Administration Lisinopril 10 mg 05/12/20 09:00 05/24/20 08:14 Lisinopril 10 Mg Tablet PO 10 mg DAILY FELIZ Administration Loperamide HCl 2 mg 05/22/20 07:58 05/22/20 08:31 Loperamide Hcl 2 Mg Capsule PO 2 mg PRN PRN Administration Diarrhea Metoprolol Succinate 50 mg 05/12/20 09:00 05/24/20 08:14 Metoprolol Succinate Ext Rel 50 Mg Tabcr PO 50 mg DAILY FELIZ Administration Sertraline HCl 150 mg 05/12/20 09:00 05/26/20 09:35 Sertraline Hcl 50 Mg Tablet PO 150 mg DAILY FELIZ Administration Spironolactone 12.5 mg 05/12/20 09:00 05/26/20 09:35 Spironolactone 12.5 Mg Tablet PO 12.5 mg QAM FELIZ Administration Labs Labs: Laboratory Results - last 24 hr 05/26/20 05/26/20 04:33 04:33 WBC 7.2 RBC 4.15 L Hgb 13.1 L Hct 37.7 L MCV 90.8 MCH 31.6 MCHC 34.7 RDW 11.4 L Plt Count 143 L MPV 11.5 H Immature Gran % (Auto) 0.1 Neut % (Auto) 34.4 L Lymph % (Auto) 51.0 H [place] % (Auto) 11.6 H Eos % (Auto) 2.5 Baso % (Auto) 0.4 Lymph # (Auto) 3.65 H [place] # (Auto) 0.8 H Eos # (Auto) 0.2 Baso # (Auto) 0.0 Abs Immat Gran (auto) 0.01 Absolute Neuts (auto) 2.5 Absolute Nucleated RBC 0.0 Nucleated RBC % 0.0 % Immature Plt Fraction 7.9 Sodium 140 Potassium 4.4 Chloride 103 Carbon Dioxide 34 H Anion Gap 3 L BUN 16 Creatinine 0.60 L Estim Creat Clear Calc 111 Estimated GFR > 60 Glucose 101 Calcium 9.3 Progress Note: A&P Assessment and Plan (1) Cerebral ventriculomegaly: Code(s): G93.89 - Other specified disorders of brain Status: Acute (2) Stroke: Code(s): I63.9 - Cerebral infarction, unspecified Status: Acute Additional Plan making significant improvement continue the treatment as such
[2020-05-26 14:00] VITALS: BP 115/71; PULSE 68; RESP 18; TEMP 36.6; O2SAT 99
[2020-05-26 20:00] VITALS: PULSE 63; RESP 18; O2SAT 98
[2020-05-26 20:10] VITALS: BP 113/55; PULSE 63; RESP 18; TEMP 36.2; O2SAT 98
[2020-05-26] MEDS: ATORVASTATIN 40 MG TABLET PO (20:59)
[2020-05-26] MEDS: DIVALPROEX SODIUM ER 500 MG TAB 2000 MG PO (20:59)
[2020-05-27 05:24] VITALS: BP 111/68; PULSE 72; RESP 18; TEMP 36.5; O2SAT 99
[2020-05-27] MEDS: SPIRONOLACTONE 12.5 MG TABLET PO (09:05)
[2020-05-27] MEDS: SERTRALINE HCL 50 MG TABLET 150 MG PO (09:05)
[2020-05-27] MEDS: APIXABAN 5 MG TABLET PO ×2 (09:07→16:45)
[2020-05-27 14:00] VITALS: BP 91/53; PULSE 70; RESP 18; TEMP 36.2; O2SAT 98
[2020-05-27 20:32] VITALS: BP 89/53; PULSE 69; RESP 18; TEMP 36.2; O2SAT 97
[2020-05-27 21:01] VITALS: BP 103/56; PULSE 65
[2020-05-27] MEDS: DIVALPROEX SODIUM ER 500 MG TAB 2000 MG PO (21:02)
[2020-05-27] MEDS: ATORVASTATIN 40 MG TABLET PO (21:02)
[2020-05-28 05:22] VITALS: BP 111/67; PULSE 67; RESP 18; TEMP 36.4; O2SAT 99
[2020-05-28 08:00] VITALS: PULSE 67; RESP 18; O2SAT 99
[2020-05-28] MEDS: APIXABAN 5 MG TABLET PO ×2 (09:08→17:22)
[2020-05-28] MEDS: SERTRALINE HCL 50 MG TABLET 150 MG PO (09:09)
[2020-05-28] MEDS: SPIRONOLACTONE 12.5 MG TABLET PO (09:09)
--- NOTE | 2020-05-28 10:53 | WPDNEURORHBP ---
Subjective Date/time seen: 05/28/20 10:53 59 years old with stroke and underlying normal pressure hydrocephalus as well involving the physical therapy and occupational therapy and gradually making significant improvement Review of Systems Review of Systems: All systems reviewed & are unremarkable except as noted in HPI and below Functional Status Ambulation Ability Ability to Ambulate 10 Feet: Minimum Assistance X 1 Ability to Ambulate 50 Feet With 2 Turns: Minimum Assistance X 1 Ambulation Assistive Devices: Walker, Wheeled Transfers Ability Ability to Transfer In/Out of Chair: Minimum Assistance X 1 Exam Narrative: Exam Narrative: on examination he remains awake alert cooperative with speech nor dysphasic not dysarthric not dysphonic heart regular with no murmur lungs clear to auscultation no rhonchi or crepitations abdomen is soft nontender with normal bowel sounds and neurological examination is unchanged Objective Data Vital Signs Vital Signs: Vital Signs - 24 hr 05/27/20 14:00 05/27/20 20:32 05/27/20 21:01 Temperature 36.2 C L 36.2 C L Pulse Rate 70 69 65 Respiratory Rate 18 18 Blood Pressure 91/53 L 89/53 L 103/56 L Pulse Oximetry 98 97 05/28/20 05:22 05/28/20 08:00 Temperature 36.4 C Pulse Rate 67 67 Respiratory Rate 18 18 Blood Pressure 111/67 Pulse Oximetry 99 99 Intake/Output Intake/Output: Intake & Output 05/25/20 05/26/20 05/27/20 05/28/20 23:59 23:59 23:59 23:59 Intake Total 960 1200 960 480 Balance 960 1200 960 480 Meds/Results Medications: Active Medications Generic Name Dose Route Start Last Admin Trade Name Freq PRN Reason Stop Dose Admin Apixaban 5 mg 05/11/20 17:00 05/28/20 09:08 Apixaban 5 Mg Tablet PO 5 mg BID FELIZ Administration Atorvastatin Calcium 40 mg 05/11/20 21:00 05/27/20 21:02 Atorvastatin 40 Mg Tablet PO 40 mg HS FELIZ Administration Divalproex Sodium 2,000 mg 05/11/20 21:00 05/27/20 21:02 Divalproex Sodium Er 500 Mg Tab PO 2,000 mg HS FELIZ Administration Lisinopril 10 mg 05/12/20 09:00 05/24/20 08:14 Lisinopril 10 Mg Tablet PO 10 mg DAILY FELIZ Administration Loperamide HCl 2 mg 05/22/20 07:58 05/22/20 08:31 Loperamide Hcl 2 Mg Capsule PO 2 mg PRN PRN Administration Diarrhea Metoprolol Succinate 50 mg 05/12/20 09:00 05/24/20 08:14 Metoprolol Succinate Ext Rel 50 Mg Tabcr PO 50 mg DAILY FELIZ Administration Sertraline HCl 150 mg 05/12/20 09:00 05/28/20 09:09 Sertraline Hcl 50 Mg Tablet PO 150 mg DAILY FELIZ Administration Spironolactone 12.5 mg 05/12/20 09:00 05/28/20 09:09 Spironolactone 12.5 Mg Tablet PO 12.5 mg QAM FELIZ Administration Progress Note: A&P Assessment and Plan (1) Cerebral ventriculomegaly: Code(s): G93.89 - Other specified disorders of brain Status: Acute (2) Stroke: Code(s): I63.9 - Cerebral infarction, unspecified Status: Acute Additional Plan remains stable will continue the therapy as such
[2020-05-28 14:00] VITALS: BP 130/73; PULSE 84; RESP 18; TEMP 36.6; O2SAT 98
[2020-05-28] MEDS: ATORVASTATIN 40 MG TABLET PO (20:14)
[2020-05-28] MEDS: DIVALPROEX SODIUM ER 500 MG TAB 2000 MG PO (20:14)
[2020-05-28 22:00] VITALS: BP 135/72; PULSE 70; RESP 17; TEMP 36.5; O2SAT 96
[2020-05-29 06:00] VITALS: BP 99/58; PULSE 70; RESP 17; TEMP 36.8; O2SAT 97
[2020-05-29] MEDS: SPIRONOLACTONE 12.5 MG TABLET PO (08:36)
[2020-05-29] MEDS: SERTRALINE HCL 50 MG TABLET 150 MG PO (08:36)
[2020-05-29] MEDS: APIXABAN 5 MG TABLET PO ×2 (08:36→17:46)
--- NOTE | 2020-05-29 11:38 | PCNFU ---
Nutrition Follow-Up Complete: Decreased fat/sodium needs related to cardiovascular disease as evidenced by history of CAD/CABG and CVA. Goal: Patient will continue to consume 75% of meals or greater. Patient has met goal. No new goal. Pt current nutrition is Regular. Nutrition recommendation: Agree Last recorded weight is 78.1 kg, no new weight. Bowel Motility:+BM 05/28. Labs Reviewed:No new labs to report. Meds Noted:Boni Delacruz Additional Notes: Nutrition follow up. Spoke with patient today, he states to no diet concerns. Appetite-good, eating 100% of meals. Monitoring: Follow up every 7 days.
--- NOTE | 2020-05-29 11:46 | WPDNEURORHBP ---
Subjective Date/time seen: 05/29/20 11:46 59 years old with stroke and normal pressure hydrocephalus involved in the physical therapy and occupational therapy making significant improvement with discharge tomorrow planned. Review of Systems Review of Systems: All systems reviewed & are unremarkable except as noted in HPI and below Functional Status Ambulation Ability Ability to Ambulate 10 Feet: Minimum Assistance X 1 Ability to Ambulate 50 Feet With 2 Turns: Minimum Assistance X 1 Ambulation Assistive Devices: Walker, Wheeled Transfers Ability Ability to Transfer In/Out of Chair: Minimum Assistance X 1 Exam Narrative: Exam Narrative: awake alert cooperative in no distress ,speech not dysphasic not dysarthric ,heart regular with no murmur ,lungs clear with no rhonchi or crepitation, abdomen is soft with normal bowel sounds and nontender and neuro examination unchanged ,is comfortable ,he is being discharged tomorrow and has made significant improvement. Objective Data Vital Signs Vital Signs: Vital Signs - 24 hr 05/28/20 14:00 05/28/20 22:00 05/29/20 06:00 Temperature 36.6 C 36.5 C 36.8 C Pulse Rate 84 70 70 Respiratory Rate 18 17 17 Blood Pressure 130/73 135/72 99/58 L Pulse Oximetry 98 96 97 Intake/Output Intake/Output: Intake & Output 05/26/20 05/27/20 05/28/20 05/29/20 23:59 23:59 23:59 23:59 Intake Total 1200 960 960 480 Balance 1200 960 960 480 Meds/Results Medications: Active Medications Generic Name Dose Route Start Last Admin Trade Name Freq PRN Reason Stop Dose Admin Apixaban 5 mg 05/11/20 17:00 05/29/20 08:36 Apixaban 5 Mg Tablet PO 5 mg BID FELIZ Administration Atorvastatin Calcium 40 mg 05/11/20 21:00 05/28/20 20:14 Atorvastatin 40 Mg Tablet PO 40 mg HS FELIZ Administration Calcium Carbonate 200 mg 05/28/20 21:19 Calcium Carbonate (Tums) 500 Mg (200 Mg Elemental) PO Q6H PRN Indigestion Divalproex Sodium 2,000 mg 05/11/20 21:00 05/28/20 20:14 Divalproex Sodium Er 500 Mg Tab PO 2,000 mg HS FELIZ Administration Lisinopril 10 mg 05/12/20 09:00 05/24/20 08:14 Lisinopril 10 Mg Tablet PO 10 mg DAILY FELIZ Administration Loperamide HCl 2 mg 05/22/20 07:58 05/22/20 08:31 Loperamide Hcl 2 Mg Capsule PO 2 mg PRN PRN Administration Diarrhea Metoprolol Succinate 50 mg 05/12/20 09:00 05/24/20 08:14 Metoprolol Succinate Ext Rel 50 Mg Tabcr PO 50 mg DAILY FELIZ Administration Sertraline HCl 150 mg 05/12/20 09:00 05/29/20 08:36 Sertraline Hcl 50 Mg Tablet PO 150 mg DAILY FELIZ Administration Spironolactone 12.5 mg 05/12/20 09:00 05/29/20 08:36 Spironolactone 12.5 Mg Tablet PO 12.5 mg QAM FELIZ Administration Progress Note: A&P Assessment and Plan (1) Cerebral ventriculomegaly: Code(s): G93.89 - Other specified disorders of brain Status: Acute (2) Stroke: Code(s): I63.9 - Cerebral infarction, unspecified Status: Acute Additional Plan stable home tomorrow
[2020-05-29 14:00] VITALS: BP 114/60; PULSE 66; RESP 18; TEMP 36.8; O2SAT 99
[2020-05-29] MEDS: ATORVASTATIN 40 MG TABLET PO (20:29)
[2020-05-29] MEDS: DIVALPROEX SODIUM ER 500 MG TAB 2000 MG PO (20:29)
[2020-05-29 22:00] VITALS: BP 122/60; PULSE 85; RESP 20; TEMP 36.9; O2SAT 98
[2020-05-30 06:00] VITALS: BP 111/64; PULSE 67; RESP 20; TEMP 36.4; O2SAT 98
[2020-05-30] MEDS: APIXABAN 5 MG TABLET PO ×2 (08:32→17:40)
[2020-05-30] MEDS: SERTRALINE HCL 50 MG TABLET 150 MG PO (08:32)
[2020-05-30] MEDS: SPIRONOLACTONE 12.5 MG TABLET PO (08:32)
[2020-05-30 14:00] VITALS: BP 112/62; PULSE 74; RESP 20; TEMP 36.3; O2SAT 99
[2020-05-30 20:00] VITALS: PULSE 72; RESP 18; O2SAT 97
[2020-05-30] MEDS: DIVALPROEX SODIUM ER 500 MG TAB 2000 MG PO (20:22)
[2020-05-30] MEDS: ATORVASTATIN 40 MG TABLET PO (20:23)
[2020-05-30 21:10] VITALS: BP 137/65; PULSE 72; RESP 18; TEMP 37.1; O2SAT 97
[2020-05-31 06:00] VITALS: BP 133/89; PULSE 60; RESP 20; TEMP 36.5; O2SAT 98
[2020-05-31] MEDS: APIXABAN 5 MG TABLET PO ×2 (09:07→17:42)
[2020-05-31] MEDS: SERTRALINE HCL 50 MG TABLET 150 MG PO (09:07)
[2020-05-31] MEDS: SPIRONOLACTONE 12.5 MG TABLET PO (09:07)
--- NOTE | 2020-05-31 12:23 | WPDNEURORHBP ---
Subjective Date/time seen: 05/31/20 12:23 59 years old with stroke and normal pressure hydrocephalus though no surgical intervention has been admitted to the rehab floor for ongoing therapy. At present he is stable and involved in therapy on a regular basis no new lab to compare with Review of Systems Review of Systems: All systems reviewed & are unremarkable except as noted in HPI and below Functional Status Ambulation Ability Ability to Ambulate 10 Feet: Minimum Assistance X 1 Ability to Ambulate 50 Feet With 2 Turns: Moderate Assistance X 1 Ambulation Assistive Devices: Walker, Wheeled Transfers Ability Ability to Transfer In/Out of Chair: Minimum Assistance X 1 Exam Narrative: Exam Narrative: on examination he is awake alert his speech full in no distress. Heart regular, lungs clear, no rhonchi or crepitation, abdomen soft nontender normal bowel sounds, and neuro examination is unchanged condition improved he is being discharged to Objective Data Vital Signs Vital Signs: Vital Signs - 24 hr 05/30/20 14:00 05/30/20 20:00 05/30/20 21:10 Temperature 36.3 C L 37.1 C Pulse Rate 74 72 72 Respiratory Rate 20 18 18 Blood Pressure 112/62 137/65 Pulse Oximetry 99 97 97 05/31/20 06:00 Temperature 36.5 C Pulse Rate 60 Respiratory Rate 20 Blood Pressure 133/89 Pulse Oximetry 98 Intake/Output Intake/Output: Intake & Output 05/28/20 05/29/20 05/30/20 05/31/20 23:59 23:59 23:59 23:59 Intake Total 960 960 720 240 Balance 960 960 720 240 Meds/Results Medications: Active Medications Generic Name Dose Route Start Last Admin Trade Name Freq PRN Reason Stop Dose Admin Apixaban 5 mg 05/11/20 17:00 05/31/20 09:07 Apixaban 5 Mg Tablet PO 5 mg BID FELIZ Administration Atorvastatin Calcium 40 mg 05/11/20 21:00 05/30/20 20:23 Atorvastatin 40 Mg Tablet PO 40 mg HS FELIZ Administration Calcium Carbonate 200 mg 05/28/20 21:19 Calcium Carbonate (Tums) 500 Mg (200 Mg Elemental) PO Q6H PRN Indigestion Divalproex Sodium 2,000 mg 05/11/20 21:00 05/30/20 20:22 Divalproex Sodium Er 500 Mg Tab PO 2,000 mg HS FELIZ Administration Lisinopril 10 mg 05/12/20 09:00 05/24/20 08:14 Lisinopril 10 Mg Tablet PO 10 mg DAILY FELIZ Administration Loperamide HCl 2 mg 05/22/20 07:58 05/22/20 08:31 Loperamide Hcl 2 Mg Capsule PO 2 mg PRN PRN Administration Diarrhea Metoprolol Succinate 50 mg 05/12/20 09:00 05/24/20 08:14 Metoprolol Succinate Ext Rel 50 Mg Tabcr PO 50 mg DAILY FELIZ Administration Sertraline HCl 150 mg 05/12/20 09:00 05/31/20 09:07 Sertraline Hcl 50 Mg Tablet PO 150 mg DAILY FELIZ Administration Spironolactone 12.5 mg 05/12/20 09:00 05/31/20 09:07 Spironolactone 12.5 Mg Tablet PO 12.5 mg QAM FELIZ Administration Progress Note: A&P Assessment and Plan (1) Cerebral ventriculomegaly: Code(s): G93.89 - Other specified disorders of brain Status: Acute (2) Stroke: Code(s): I63.9 - Cerebral infarction, unspecified Status: Acute Additional Plan stable home today
[2020-05-31 14:00] VITALS: BP 111/82; PULSE 79; RESP 20; TEMP 36.7; O2SAT 97
[2020-05-31 20:00] VITALS: PULSE 57; RESP 18; O2SAT 94
[2020-05-31] MEDS: ATORVASTATIN 40 MG TABLET PO (20:40)
[2020-05-31] MEDS: DIVALPROEX SODIUM ER 500 MG TAB 2000 MG PO (20:41)
[2020-05-31 21:13] VITALS: BP 128/69; PULSE 57; RESP 18; TEMP 36.7; O2SAT 94
[2020-06-01 06:00] VITALS: BP 142/75; PULSE 73; RESP 16; TEMP 36.9; O2SAT 97
[2020-06-01] MEDS: APIXABAN 5 MG TABLET PO (08:53)
[2020-06-01] MEDS: SPIRONOLACTONE 12.5 MG TABLET PO (08:54)
[2020-06-01] MEDS: SERTRALINE HCL 50 MG TABLET 150 MG PO (08:54)
--- NOTE | 2020-06-04 08:51 | PM.DS ---
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 Level of functions at the time of admission revealed a Eating [Set Up Only] Oral Care substantial maximal assistance Toileting Hygiene substantial maximal assistance Shower/Bathing substantial maximal assistance Upper Body Dressing substantial maximal assistance] Lower Body Dressing dependent Donning/[address] Footwear dependent Rolling Left and Right partial assistance Sit to Lying partial assistance Lying to Sitting partial assistance Sit to Stand partial assistance Bed to Chair Transfers substantial and maximal assistance Toilet Transfers substantial and maximal assistance Car Transfers partial assistance Walking 50' with Two Turns not applicable Walking 150' not applicable Curb or Step not applicable] 4 Steps not applicable 12 Steps not applicable Picking Up Object not applicable0' [Wheelchair Mobility 150' partial assistance GOALS: Eating [INDEPENDENT] Oral Care [INDEPENDENT] Toileting Hygiene [INDEPENDENT] Shower/Bathing [INDEPENDENT] Upper Body Dressing setup or clean up Lower Body Dressing set up or clean Donning/[address] Footwear setup or clean up Rolling Left and Right [INDEPENDENT] Sit to Lying [INDEPENDENT] Lying to Sitting [INDEPENDENT] Sit to Stand [INDEPENDENT] Bed to Chair Transfers [INDEPENDENT] Toilet Transfers [INDEPENDENT] Car Transfers [INDEPENDENT] Walking 10' [INDEPENDENT] Walking 50' with Two Turns [INDEPENDENT] Walking 150' [INDEPENDENT] Curb or Step [INDEPENDENT] 4 Steps [INDEPENDENT] 12 Steps [INDEPENDENT] Picking Up Object [INDEPENDENT] [Wheelchair Mobility 50'] [INDEPENDENT] [Wheelchair Mobility 150'] [INDEPENDENT] DISCHARGE PERFORMANCE: Eating [INDEPENDENT] Oral Care [INDEPENDENT] Toileting Hygiene supervision Shower/Bathing supervision] Upper Body Dressing [INDEPENDENT] Lower Body Dressing supervision Donning/[address] Footwear setup or clean up Rolling Left and Right [INDEPENDENT] Sit to Lying [INDEPENDENT] Lying to Sitting [INDEPENDENT] Sit to Stand supervision Bed to Chair Transfers partial assistance Toilet Transfers partial assistance Car Transfers supervision Walking 10' partial assistance Walking 50' with Two Turns partial assistance Walking 150' not applicable Curb or Step partial assistance 4 Steps not applicable 12 Steps not applicable Picking Up Object partial assistance [Wheelchair Mobility 50'] [INDEPENDENT] [Wheelchair Mobility 150'] [INDEPENDENT] throughout the hospitalization patient had no falls or injuries he was discharged to his home with instructions for the home health and his condition significantly improved DS: Summary Time Spent with Patient Time attestation: Total time spent providing and/or coordinating discharge services: Discharge Plan Discharge Attending physician on discharge: Kulwinder Rouse Discharging Clinician: Jiaro Dominique Anticipated Discharge Date/Time: 06/01/20 11:13 Patient Disposition: Home Health Service Discharge Instructions: Per Care Coordination: Home Health services have been arranged through [facility]. [facility] can be contacted at [phone]. Please fax discharge instructions to [facility] at [phone]. Patient Instructions:
== END 2020-06-01 12:55 | disposition home health service (06) | DRG 57 ==
PROVIDERS: Admitting Provider Psychiatry & Neurology Neurology; PCP Nurse Practitioner Family; Visit Provider Psychiatry & Neurology Neurology
DX: I69.354 Hemiplegia and hemiparesis following cerebral infarction affecting left non-dominant side (principal); I50.20 Unspecified systolic (congestive) heart failure; G91.0 Communicating hydrocephalus; I11.0 Hypertensive heart disease with heart failure; E78.5 Hyperlipidemia, unspecified; E04.9 Nontoxic goiter, unspecified; F31.9 Bipolar disorder, unspecified; F17.210 Nicotine dependence, cigarettes, uncomplicated; G72.9 Myopathy, unspecified; I25.10 Atherosclerotic heart disease of native coronary artery without angina pectoris; I25.82 Chronic total occlusion of coronary artery; I25.2 Old myocardial infarction; I25.5 Ischemic cardiomyopathy; Z95.1 Presence of aortocoronary bypass graft; Z95.5 Presence of coronary angioplasty implant and graft
CPT/HCPCS: 36415; 80048; 80061; 85025; 85055; 97110; 97116; 97161; 97166; 97530; 97535; 97542; A9270